=== PATIENT | female | born 1970 | race American Indian/Alaskan Native ===

== ENCOUNTER 2017-03-26 09:10 | Day surgery (SDC) | payer BC ==
[2017-03-26] MEDS ORDERED: LOPRESSOR PO SCH (10:31)
[2017-03-26] MEDS ORDERED: LOPRESSOR IV ONE (10:32)
[2017-03-26] MEDS ORDERED: LOPRESSOR ONE (10:33)
[2017-03-26] MEDS ORDERED: NITROSTAT SL ONE (10:34)
[2017-03-26] MEDS ORDERED: ATROPINE IV ONE (10:36)
[2017-03-26] MEDS ORDERED: ATROPINE 0.1% (CARDIAC) ONE (10:54)
[2017-03-26 11:20] LABS: Blood Urea Nitrogen 8 mg/dL (7-17)
[2017-03-26] MEDS ORDERED: LOPRESSOR PO ONE (11:47)
[2017-03-26 12:02] VITALS: BP 120/88
== END 2017-03-26 12:30 | disposition home or self-care (01) ==
LOC: OPU 09:10
PROVIDERS: ATTEND Internal Medicine Cardiovascular Disease
DX: I42.9 Cardiomyopathy, unspecified (principal); Z53.8 Procedure and treatment not carried out for other reasons; I50.20 Unspecified systolic (congestive) heart failure; I25.10 Atherosclerotic heart disease of native coronary artery without angina pectoris; D64.9 Anemia, unspecified; K21.9 Gastro-esophageal reflux disease without esophagitis; E78.5 Hyperlipidemia, unspecified; E66.9 Obesity, unspecified; Z68.35 Body mass index [BMI] 35.0-35.9, adult; Z82.49 Family history of ischemic heart disease and other diseases of the circulatory system
CPT/HCPCS: 36415; 82565; 84520; J0461

== ENCOUNTER 2017-04-07 08:48 | Day surgery (SDC) | payer BC ==
[2017-04-07] MEDS ORDERED: NITROSTAT SL ONE (09:36)
[2017-04-07] MEDS ORDERED: LOPRESSOR IV ONE ×3 (09:37→11:31)
[2017-04-07] MEDS ORDERED: LOPRESSOR ONE (09:58)
[2017-04-07] MEDS ORDERED: NACL ONE (10:43)
[2017-04-07] MEDS ORDERED: LOPRESSOR PO SCH (11:00)
[2017-04-07 12:03] VITALS: BP 116/84
[2017-04-07] MEDS ORDERED: LOPRESSOR IV SCH (13:00)
--- NOTE | 2017-04-08 07:36 | Cat Scan Report ---
LIMITED CT OF THE CHEST PER CT CORONARY ANGIOGRAPHY PROTOCOL: History: Cardiomyopathy. Limited CT of the chest per CT coronary angiography protocol is submitted. The cardiac portion of the exam has been previously interpreted by the Aircraft Engine Installer. The included portions of the lungs appear clear without evidence for nodule, mass or infiltrate. The included pleural spaces are clear. No mediastinal or hilar adenopathy is evident. Included upper abdomen and solid abdominal organs are grossly within normal limits. IMPRESSION: Normal limited CT of the chest as noted.
--- NOTE | 2017-04-09 21:53 | Procedure Note ---
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 Please evaluate. DESCRIPTION OF PROCEDURE: After obtaining written consent, the patient originally received 100 mg of p.o. metoprolol prior to arrival to the hospital. In the hospital, the patient received another 100 mg of p.o. metoprolol, followed by 15 mg of IV Lopressor to control heart rate. A 0.4 mg of sublingual nitroglycerin was given for coronary vasodilatation. The patient was scanned with a heart rate during CT scan of 69 beats per minute. A 100 mL of Omnipaque 350 were administered for opacification of the coronary arteries. No complications occurred during the procedure. FINDINGS: 1. The calcium score is zero indicating the absence of calcified atherosclerotic plaque and a very low cardiovascular disease risk. Less than 5% chance of presence of coronary artery disease. 2. The left main is angiographically normal. Her left main originates from the left coronary cusp. 3. The left anterior descending artery is angiographically normal and no obstructive disease noted in the LAD. There is a large-sized diagonal artery that is also angiographically normal. 4. The left circumflex artery is angiographically normal. The large-sized first obtuse marginal angiographically normal. 5. The right coronary artery originates from the left coronary cusp. The right coronary artery, courses in between and the proximal aortic root as well as the main pulmonary artery trunk. The proximal right coronary artery exhibits a 76-84% luminal area reduction compared to the more distal segment. The mid and distal right coronary artery is free of any significant obstructive disease. 6. The aortic root is normal in size. The aortic valve is trileaflet. 7. The mean pulmonary artery is dilated with the pulmonary artery diameter measuring 28.3 mm. 8. The descending thoracic aorta is normal in caliber. 9. Four pulmonary veins are visualized entering the left atrium. No filling defect is noted in left atrial appendage. 10. The left ventricular cavity is dilated. The left ventricular end-diastolic diameter measures 61.7 mm. The left ventricular end-systolic diameter measures 58.2 mm. There is evidence of severe left ventricular dysfunction with an ejection fraction measured at 26%. There is evidence of global left ventricular hypokinesis and specifically there is evidence of anteroseptal as well as inferoseptal severe hypokinesis to akinesis noted. 11. No evidence of pericardial effusion. No significant extracardiac abnormalities were noted. IMPRESSION: 1. Fair quality 64- slice cardiac CT limited by a heart rate variability. 2. Calcium score of zero indicating the absence of calcified atherosclerotic plaque and a very low cardiovascular disease risk. 3. 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 The right coronary artery courses proximally between the main aorta and the main pulmonary artery. The proximal segment of the right coronary artery exhibits a 756% to an 84% luminal area reduction compared to the middle and distal segments. No obstructive disease noted within the right coronary artery distally. The right coronary artery is a dominant vessel. 4. Anatomically and angiographically normal left coronary circulation. 5. Dilated pulmonary artery measuring 28.3 mm in diameter. 6. Dilated left ventricular cavity with a left ventricular end-diastolic diameter measuring 61.7 mm and evidence of severe left ventricular dysfunction with an ejection fraction measured at 26%. 7. Evidence of regional wall motion abnormality with severe hypokinesis to akinesis of the inferior septal as well as anteroseptal mcknight. 8. No evidence of extracardiac abnormalities noted. RECOMMENDATION: Follow up with referring glass loading equipment tender. JOB# [id number] CURTIS/BUSHRA
== END 2017-04-07 11:40 | disposition home or self-care (01) ==
LOC: OPU 08:48
PROVIDERS: ATTEND Internal Medicine Cardiovascular Disease
DX: I42.9 Cardiomyopathy, unspecified (principal)
CPT/HCPCS: 75574; 96374; Q9967